=== PATIENT | female | born 1960 | race Caucasian/White ===

== ENCOUNTER 2024-11-16 12:45 | Inpatient (IN) | payer MEDICARE ==
[2024-11-16 13:27] LABS: APPEARANCE,URINE CLEAR (CLEAR); BILIRUBIN,URINE SMALL (NEGATIVE); COLOR,URINE YELLOW (YELLOW); GLUCOSE,URINE NEGATIVE (NEGATIVE); KETONES,URINE 80 mg/dL (NEGATIVE); LEUKOCYTE ESTERASE,URINE TRACE (NEGATIVE); NITRITE,URINE NEGATIVE (NEGATIVE); OCCULT BLOOD,URINE NEGATIVE (NEGATIVE); PH,URINE 8.5 (5.0-8.0); PROTEIN,URINE 30 mg/dL (NEGATIVE); UROBILINOGEN,URINE 0.2 EU/dL (0.2-1.0)
[2024-11-16 13:36] LABS: AMORPHOUS SEDIMENT,URINE NOT SEEN; BACTERIA,URINE FEW; EPITHELIAL CELLS,URINE FEW; MUCUS,URINE MODERATE; RBC,URINE 0-5 (0-5); WBC,URINE 0-5 (0-5)
[2024-11-16] MEDS ORDERED: Sodium Chloride 0.9% 10 ML Syringe FLUSH PRN (14:10)
[2024-11-16 14:37] LABS: BASOPHILS PERCENT AUTO 0.2 % (0.1-1.3); EOSINOPHILS ABSOLUTE AUTO 0.04 K/uL (0.00-0.40); EOSINOPHILS PERCENT AUTO 0.4 % (0.0-5.4); HEMATOCRIT 42.1 % (34.3-46.0); HEMOGLOBIN 14.8 g/dL (11.2-15.5); IMMATURE GRAN ABSOLUTE AUTO 0.03 K/uL (0.00-0.23); IMMATURE GRAN PERCENT AUTO 0.3 % (0.0-0.7); LYMPHOCYTES PERCENT AUTO 9.1 % (11.4-47.7); MEAN CORPUSCULAR HEMOGLOBIN 30.8 pg (31.6-35.5); MEAN CORPUSCULAR HGB CONC 35.2 g/dL (31.6-35.5); MEAN CORPUSCULAR VOLUME 87.5 fL (81.4-99.0); MONOCYTES ABSOLUTE AUTO 0.49 K/uL (0.20-0.90); MONOCYTES PERCENT AUTO 4.5 % (3.3-12.6); NEUTROPHILS ABSOLUTE AUTO 9.35 K/uL (1.0-7.6); NEUTROPHILS PERCENT AUTO 85.5 % (40.0-78.1); PLATELET COUNT,PLT 368 K/uL (130-375); RED BLOOD CELL COUNT 4.81 M/uL (3.77-5.24); WHITE BLOOD CELL COUNT,WBC 10.9 K/uL (3.2-11.0)
[2024-11-16 14:39] LABS: BASOPHILS ABSOLUTE AUTO 0.02 K/uL (0.00-0.10)
[2024-11-16] MEDS: Sodium Chloride 0.9% 1,000 ML IV STA (14:47)
[2024-11-16] MEDS: Iopamidol 612 MG/ML 100 ML Bottle IV PRN (14:54)
[2024-11-16] MEDS: Sodium Chloride 0.9% 80 ML IV SCH (14:54)
[2024-11-16] MEDS: Sodium Chloride 0.9% 10 ML Syringe FLUSH ONE (14:54)
[2024-11-16 15:01] LABS: ALANINE AMINOTRANSFERASE,ALT 17 U/L (12-78); ALBUMIN 4.3 g/dL (3.4-5.0); ALKALINE PHOSPHATASE 72 U/L (46-116); ASPARTATE AMNIOTRANSFERASE,AST 20 U/L (15-37); BILIRUBIN TOTAL 0.4 mg/dL (0.2-1.0); BLOOD UREA NITROGEN,BUN 18 mg/dL (7-18); CALCIUM 10.6 mg/dL (8.5-10.1); CARBON DIOXIDE,CO2 26 mmol/L (21-32); CHLORIDE,CL 98 mmol/L (100-108); CREATININE 1.1 mg/dL (0.6-1.0); EST CRCL DRUG DOSING (CG) 45.88 mL/min; ESTIMATED GFR 56 mL/min (>60); GLUCOSE RANDOM 105 mg/dL (74-106); PROTEIN TOTAL,TP 8.7 g/dL (6.4-8.2); SODIUM,NA 137 mmol/L (140-148); TROPONIN I HIGH SENSITIVITY 5.5 pg/mL (<=60.3)
[2024-11-16] MEDS: fentaNYL 100 MCG/2 ML SDV IVPUSH ONE (16:27)
[2024-11-16] MEDS: Ondansetron 4 MG/2 ML SDV IVPUSH ONE (16:27)
[2024-11-16] MEDS: Lidocaine 4% Top Soln 50 ML Bottle MUCMEM ONE (17:33)
[2024-11-16] MEDS ORDERED: Ondansetron 4 MG Tab.DIS PO PRN (17:38)
[2024-11-16] MEDS ORDERED: Benzocaine/Cetylpyridinium/Menthol Lozenge MUCMEM PRN (17:38)
[2024-11-16] MEDS ORDERED: Magnesium Hydroxide 400 MG/5 ML Susp 30 ML Cup PO PRN (17:38)
[2024-11-16] MEDS ORDERED: Acetaminophen 325 MG Tab PO PRN (17:38)
[2024-11-16] MEDS ORDERED: Sennosides/Docusate Sodium 50-8.6 MG Tab PO PRN (17:38)
[2024-11-16] MEDS: Sodium Chloride 0.9% 1,000 ML IV SCH (17:53)
[2024-11-16] MEDS: Pantoprazole 40 MG Vial IVPUSH SCH (20:57)
[2024-11-16] MEDS: Phenol/Sodium Phenolate Spray 180 ML Bottle MUCMEM PRN (20:57)
[2024-11-16] MEDS: fentaNYL 100 MCG/2 ML SDV IVPUSH PRN (20:58)
[2024-11-16] MEDS: Ondansetron 4 MG/2 ML SDV IV PRN (20:59)
[2024-11-17 05:53] LABS: HEMATOCRIT 35.8 % (34.3-46.0); HEMOGLOBIN 12.3 g/dL (11.2-15.5); MEAN CORPUSCULAR HGB CONC 34.4 g/dL (31.6-35.5); MEAN CORPUSCULAR VOLUME 90.2 fL (81.4-99.0); RED BLOOD CELL COUNT 3.97 M/uL (3.77-5.24); WHITE BLOOD CELL COUNT,WBC 6.6 K/uL (3.2-11.0)
[2024-11-17 06:08] LABS: ANION GAP 8.6 mmol/L (5.0-14.0); CALCIUM 8.7 mg/dL (8.5-10.1); CREATININE 1.2 mg/dL (0.6-1.0); EST CRCL DRUG DOSING (CG) 42.06 mL/min; POTASSIUM,K 4.1 mmol/L (3.6-5.2)
[2024-11-17] MEDS: Sodium Chloride 0.9% 1,000 ML IV SCH (15:52)
[2024-11-17] MEDS: Acetaminophen 650 MG Supp RECTAL PRN (16:11)
[2024-11-18 05:59] LABS: ANION GAP 10.8 mmol/L (5.0-14.0); CALCIUM 8.7 mg/dL (8.5-10.1); EST CRCL DRUG DOSING (CG) 50.47 mL/min; POTASSIUM,K 3.7 mmol/L (3.6-5.2)
[2024-11-18] MEDS: Bisacodyl 10 MG Supp RECTAL ONE (11:29)
[2024-11-18] MEDS: Dextrose 5%-Lactated Ringers 1,000 ML IV SCH (11:29)
[2024-11-19] MEDS: Diatrizoate Meglumine/Diatrizoate Sodium 37% 120 ML Bottle NGTUBE ONE (12:45)
[2024-11-20 06:10] LABS: CALCIUM 9.2 mg/dL (8.5-10.1); CREATININE 0.9 mg/dL (0.6-1.0); EST CRCL DRUG DOSING (CG) 56.08 mL/min; MAGNESIUM 1.8 mg/dL (1.8-2.4); POTASSIUM,K 3.3 mmol/L (3.6-5.2)
[2024-11-20 06:11] LABS: ANION GAP 15.3 mmol/L (5.0-14.0)
[2024-11-20] MEDS ORDERED: fentaNYL 250 MCG/5 ML SDV ONE (09:55)
[2024-11-20] MEDS ORDERED: Propofol 200 MG/20 ML SDV ONE (09:56)
[2024-11-20] MEDS ORDERED: Dexamethasone 4 MG/ML SDV ONE (09:56)
[2024-11-20] MEDS ORDERED: Succinylcholine 200 MG/10 ML MDV ONE (09:56)
[2024-11-20] MEDS ORDERED: Ondansetron 4 MG/2 ML SDV ONE (09:56)
[2024-11-20] MEDS ORDERED: Rocuronium 50 MG/5 ML Vial ONE (09:56)
[2024-11-20] MEDS ORDERED: Neostigmine Methylsulfate 10 MG/10 ML MDV ONE (09:56)
[2024-11-20] MEDS ORDERED: Glycopyrrolate 0.2 MG/ML 5 ML MDV ONE (09:56)
[2024-11-20] MEDS: ceFAZolin 2 GM in Premix Bag 1 BAG IV ONE (11:40)
[2024-11-20] MEDS ORDERED: Ketorolac 30 MG/ML SDV ONE (12:10)
[2024-11-20] MEDS: Bupivacaine 0.25%/EPINEPHrine 1:200,000 30 ML SDV ONE (12:20)
[2024-11-20] MEDS: Potassium Chloride 10 MEQ in Premix Bag 1 BAG IV SCH (13:26)
[2024-11-20] MEDS: Lactated Ringers 1,000 ML IV SCH (14:36)
[2024-11-20] MEDS: Ketorolac 15 MG/ML SDV IVPUSH PRN (23:27)
[2024-11-21] MEDS: fentaNYL 50 MCG/ML SDV IVPUSH PRN (03:54)
[2024-11-21 05:57] LABS: CALCIUM 8.5 mg/dL (8.5-10.1); EST CRCL DRUG DOSING (CG) 50.47 mL/min; POTASSIUM,K 3.6 mmol/L (3.6-5.2)
[2024-11-22] MEDS: Lactated Ringers 1,000 ML IV SCH (02:30)
[2024-11-22 05:48] LABS: BASOPHILS PERCENT AUTO 0.3 % (0.1-1.3); EOSINOPHILS ABSOLUTE AUTO 0.47 K/uL (0.00-0.40); EOSINOPHILS PERCENT AUTO 7.2 % (0.0-5.4); HEMATOCRIT 31.6 % (34.3-46.0); HEMOGLOBIN 10.8 g/dL (11.2-15.5); IMMATURE GRAN ABSOLUTE AUTO 0.04 K/uL (0.00-0.23); IMMATURE GRAN PERCENT AUTO 0.6 % (0.0-0.7); LYMPHOCYTES ABSOLUTE AUTO 1.16 K/uL (0.8-3.3); LYMPHOCYTES PERCENT AUTO 17.7 % (11.4-47.7); MEAN CORPUSCULAR HEMOGLOBIN 30.9 pg (31.6-35.5); MEAN CORPUSCULAR HGB CONC 34.2 g/dL (31.6-35.5); MEAN CORPUSCULAR VOLUME 90.5 fL (81.4-99.0); MONOCYTES ABSOLUTE AUTO 0.57 K/uL (0.20-0.90); MONOCYTES PERCENT AUTO 8.7 % (3.3-12.6); NEUTROPHILS ABSOLUTE AUTO 4.29 K/uL (1.0-7.6); NEUTROPHILS PERCENT AUTO 65.5 % (40.0-78.1); PLATELET COUNT,PLT 239 K/uL (130-375); RED BLOOD CELL COUNT 3.49 M/uL (3.77-5.24); WHITE BLOOD CELL COUNT,WBC 6.6 K/uL (3.2-11.0)
[2024-11-22 05:53] LABS: BASOPHILS ABSOLUTE AUTO 0.02 K/uL (0.00-0.10)
[2024-11-22 06:05] LABS: CALCIUM 8.7 mg/dL (8.5-10.1); EST CRCL DRUG DOSING (CG) 50.47 mL/min; POTASSIUM,K 3.3 mmol/L (3.6-5.2)
[2024-11-22 06:11] LABS: ANION GAP 12.3 mmol/L (5.0-14.0)
[2024-11-22] MEDS: Potassium Chloride 20 MEQ Tab.ER PO ONE ×2 (09:22→16:11)
[2024-11-22 16:17] VITALS: BP 125/67; PULSE 48
[2024-11-22] MEDS ORDERED: Pantoprazole 40 MG Tab.CR PO SCH (21:00)
== END 2024-11-22 18:45 | disposition home or self-care (01) | DRG 336 ==
LOC: JP.ED 12:45 → JP.MS 17:04
PROVIDERS: ADMIT Internal Medicine; ATTEND Hospitalist
PROC: 0DN84ZZ Release Small Intestine, Percutaneous Endoscopic Approach (ICD-10-PCS; principal; 2024-11-16)
DX: K56.609 Unspecified intestinal obstruction, unspecified as to partial versus complete obstruction (principal); K56.50 Intestinal adhesions [bands], unspecified as to partial versus complete obstruction; R18.8 Other ascites; N20.0 Calculus of kidney; Z79.899 Other long term (current) drug therapy; Z90.710 Acquired absence of both cervix and uterus
CPT/HCPCS: 36415; 74018; 74018-26; 74019; 74019-26; 74177; 74177-26; 80048; 80053; 81001; 83605; 83690; 83735; 84484; 85025; 85027; 96361; 96374; 96375; 99285-25; A9270-GY; J0330; J0690; J1100; J1596; J1885; J2405; J2470; J2704; J2710; J3010; J3480; J3490; J7030; J7120; J7121; Q9963; Q9967